=== PATIENT | male | born 1970 | race Caucasian/White ===

== ENCOUNTER 2017-05-06 17:30 | Emergency (ER) | payer OTHER ==
[2017-05-06 18:15] LABS: HEMOGLOBIN 14.2 gm/dl (14.0-17.5); RED BLOOD COUNT 4.47 M/UL (4.20-5.50); WHITE BLOOD COUNT 7.2 K/UL (4.5-11.0)
[2017-05-06 18:49] LABS: BUN/CREATININE RATIO 18 (0-10)
== END 2017-05-06 21:20 ==
LOC: ER1 17:30
PROVIDERS: Emergency Medicine
DX: K62.3 Rectal prolapse (principal); F17.200 Nicotine dependence, unspecified, uncomplicated
CPT/HCPCS: 36415; 80048; 85025; 85610; 85730; 96374; 96375; 99284; J2270; J2405

== ENCOUNTER 2021-07-17 08:08 | Emergency (ER) | payer OTHER ==
[2021-07-17 10:06] LABS: HEMOGLOBIN 13.9 gm/dl (14.0-17.5); RED BLOOD COUNT 4.22 M/UL (4.20-5.50); WHITE BLOOD COUNT 7.6 K/UL (4.5-11.0)
[2021-07-17 10:24] LABS: BUN/CREATININE RATIO 13 (0-10)
[2021-07-17] MEDS ORDERED: PERCOCET 5-3251 EACH PO (14:26)
== END 2021-07-17 15:00 | disposition home or self-care (01) ==
LOC: ER1 08:08
PROVIDERS: Family Medicine
DX: K62.89 Other specified diseases of anus and rectum (principal); Z90.89 Acquired absence of other organs
CPT/HCPCS: 80053; 85025; 86140; 96374; 96375; 99284; J2270; J2405; Q9967